=== PATIENT | female | born 1965 | race Caucasian/White ===

== ENCOUNTER 2018-10-14 06:50 | Observation (INO) ==
--- NOTE | 2018-10-05 13:48 | XRay Report ---
XR chest 2V routine CLINICAL HISTORY: PRE OP preoperative evaluation COMPARISON STUDY: 09/09/2015 FINDINGS: The bones soft tissues and hemidiaphragms are normal. The cardiomediastinal silhouette is n ormal. The lungs are clear. The pulmonary vasculature is normal. IMPRESSION: Negative chest. The above report was generated using voice recognition software. It may contain grammatical, syntax or spelling errors. Electronically signed by: Bhupendra Zuñiga M.D. 10/05/2018 1:47 PM
[2018-10-05 14:05] LABS: Basophils # (auto) 0.03 K/uL (0-0.2); Basophils % (auto) 0.3 %; Eosinophils # (auto) 0.12 K/uL (0-0.5); Eosinophils % (auto) 1.1 %; Hematocrit (blood only) 46.9 % (37-47); Hemoglobin 15.6 g/dL (12.0-16.0); Immature Granulocytes # (auto) 0.02 K/uL (0.00-0.02); Immature Granulocytes % (auto) 0.2 %; Lymphocytes # (auto) 2.99 K/uL (1.2-3.4); Lymphocytes % (auto) 26.7 %; Mean Corpuscular Hgb Conc 33.3 g/dL (32-36); Mean Corpuscular Volume 94.2 fL (80-100); Monocytes # (auto) 0.91 K/uL (0.11-0.59); Monocytes % (auto) 8.1 %; Neutrophils # (auto) 7.11 K/uL (1.4-6.5); Neutrophils % (auto) 63.6 %; Platelet Count 301 K/uL (130-400); RDW Coefficient of Variation 13.4 % (11.5-14.5); Red Blood Count 4.98 M/uL (4.2-5.4); White Blood Count 11.18 K/uL (4.8-10.8)
[2018-10-05 14:22] LABS: INR 0.9 (0.9-1.1); Partial Thromboplastin Time 26.3 Seconds (21.0-31.0); Prothrombin Time 9.7 Seconds (9.0-12.0)
[2018-10-05 14:32] LABS: Calcium 9.3 mg/dl (8.5-10.1); Creatinine Clr Calc Pharmacy 107.8 ml/min; Est GFR (African American) 117.4; Est GFR (Non-African American) 101.3; Potassium 3.7 mmol/L (3.5-5.1)
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
[~2018-10-14 06:50] MED LIST: ACETAMINOPHEN 1,000 MG/100 ML VIAL IV SCH; CEFAZOLIN 2000MG 2,000 MG/15 ML SYR IV SCH; LR 15ML/HR IV SCH; SODIUM CHLORIDE 0.9% 1,000 ML IV SCH
[2018-10-14] MEDS ORDERED: ONDANSETRON INJ 2 MG/ML 2 ML VIAL ONE (07:36)
[2018-10-14] MEDS ORDERED: NEOSTIGMINE METHYLSULFATE 5 MG/5 ML SYR ONE (07:36)
[2018-10-14] MEDS ORDERED: LIDOCAINE HCL 2% 2 ML VIAL/AMP(20MG/ML) INFIL ONE (07:36)
[2018-10-14] MEDS ORDERED: MIDAZOLAM HCL 1 MG/ML 2ML VIAL ONE (07:36)
[2018-10-14] MEDS ORDERED: GLYCOPYRROLATE 0.2 MG/ML VIAL ONE (07:36)
[2018-10-14] MEDS ORDERED: ROCURONIUM BROMIDE 10 MG/ML 5 ML VIAL ONE (07:36)
[2018-10-14] MEDS ORDERED: PHENYLEPHRINE 100MCG/ML 5ML SYR ONE (07:36)
[2018-10-14] MEDS ORDERED: fentaNYL citrate 100 MCG/2 ML VIAL ONE (07:36)
[2018-10-14] MEDS ORDERED: LARYING-O-JET KIT (LTA) ONE (07:36)
[2018-10-14] MEDS ORDERED: ePHEDrine sulfate 50 MG/ML SYR ONE (07:36)
[2018-10-14] MEDS ORDERED: PROPOFOL IV EMULSION 10 MG/ML 20 ML VIAL IV ONE (07:36)
[2018-10-14] MEDS ORDERED: DEXAMETHASONE SOD INJ 4 MG/ML VIAL ONE (07:36)
--- NOTE | 2018-10-14 07:41 | History & Physical Bridge Note ---
Date of Service October 14, 2018 History & Physical Bridge Note I have examined the patient, reviewed the History & Physical and in the interval since the performance of the History & Physical I have noted the following changes of clinical significance: no changes noted
[2018-10-14] MEDS ORDERED: ePHEDrine sulfate 50 MG/ML AMP IV PRN (07:49)
[2018-10-14] MEDS ORDERED: ONDANSETRON INJ 2 MG/ML 2 ML VIAL IV PRN ×2 (07:49→12:03)
[2018-10-14] MEDS ORDERED: ATROPINE SULFATE 0.1 MG/ML 10ML SYR IV PRN (07:49)
[2018-10-14] MEDS ORDERED: GELATIN SPONGE SZ 100 ONE (07:54)
[2018-10-14] MEDS ORDERED: VANCOMYCIN HCL 1000MG/20ML VIAL ONE (07:54)
[2018-10-14] MEDS ORDERED: BUPIVACAINE/EPINEPHRINE 0.5% MPF 1:200,000 30 ML VIAL ONE (07:54)
[2018-10-14] MEDS ORDERED: BACITRACIN INJ 50,000 UNIT VIAL ONE (07:55)
[2018-10-14] MEDS ORDERED: HYDROmorphone INJ 2 MG/ML SYR/VIAL ONE (08:49)
[2018-10-14] MEDS: THROMBIN FOR SOLN 20000 UNIT KIT ONE ×2 (08:58→12:28)
--- NOTE | 2018-10-14 10:21 | Fluoroscopy Report ---
FL spine 1V any level CLINICAL HISTORY: L5-S1 REMOVAL OF SILVIA/ L4-L5 LMAI AND FUSION COMPARISON STUDY: October 11 FLUOROSCOPY TIME: 68 seconds. NUMBER OF FLUOROSCOPIC IMAGES: 1 FINDINGS: A single fluoroscopic crosstable lateral view the lumbar spine is provided for interpretati on. There are posterior skin retractors. There are postsurgical changes at L5-S1 discectomy and inter body fusion. There are pedicle screws at the L4, L5, and S1 levels. IMPRESSION: Intraoperative fluoroscopic spot film as described above. Electronically signed by: David Moyer M.D. 10/14/2018 10:20 AM
[2018-10-14] MEDS: fentaNYL citrate 100 MCG/2 ML VIAL IV PRN ×3 (10:39→11:15)
--- NOTE | 2018-10-14 11:31 | Anesthesiology Progress Note ---
Date of Service October 14, 2018 Anesthesia Post Procedure Vital Signs Vital Signs: Temp Pulse Pulse Resp BP Pulse Ox 10/14/18 11:25 47 L 18 131/57 L 98 10/14/18 11:15 61 24 148/68 H 98 10/14/18 11:05 97.3 F L 66 14 138/62 98 10/14/18 10:55 59 L 16 149/63 H 100 10/14/18 10:45 67 20 148/80 H 100 10/14/18 10:35 72 18 138/90 100 10/14/18 10:29 97.5 F L 92 H 15 146/89 H 100 10/14/18 07:25 97.9 F 66 18 148/79 H 96 Pain Intensity Lower Back: Pain Intensity: 3 Bilateral Leg: Pain Intensity: 7 Transfer of Care Handoff Completed per policy Notes Mental Status: alert / awake / arousable and participated in evaluation Patient Amnestic to Procedure: Yes Nausea / Vomiting: adequately controlled Pain: adequately controlled Airway Patency, RR, SpO2: stable & adequate BP & HR: stable & adequate Hydration State: stable & adequate Anesthetic Complications: no major complications apparent and Pt Satisfied with anesthetic care
[2018-10-14] MEDS ORDERED: ACETAMINOPHEN 1,000 MG/100 ML VIAL IV PRN (12:03)
[2018-10-14] MEDS ORDERED: SOD PHOSPHATE/SOD BIPHOSPHATE ENEMA 132 ML BTL PR PRN (12:03)
[2018-10-14] MEDS ORDERED: BISACODYL 10 MG SUPP PR PRN (12:03)
[2018-10-14] MEDS ORDERED: MAGNESIUM HYDROXIDE SUSP 30 ML UDC PO PRN (12:03)
[2018-10-14] MEDS: SODIUM CHLORIDE 0.9% 1000ML 1,000 ML IV SCH (12:29)
[2018-10-14] MEDS: KETOROLAC 30 MG/ML VIAL IV SCH ×2 (12:31→17:02)
[2018-10-14] MEDS: HYDROmorphone INJ 0.5 MG/0.5 ML SYR IV PRN (13:11)
[2018-10-14] MEDS: OXYCODONE HCL IR 5 MG TAB (IMMEDIATE RELEASE) PO PRN ×2 (15:52→20:06)
[2018-10-14] MEDS: CEFAZOLIN 2000MG 2,000 MG/15 ML SYR IV SCH (16:05)
--- NOTE | 2018-10-14 18:58 | Operative Report ---
DATE OF OPERATION: 10/14/2018 PREOPERATIVE DIAGNOSES: Spinal stenosis lumbar spine, instability lumbar spine. PROCEDURE: Revision of L4 and L5 lumbar spine, 2-level decompression laminectomy, foraminotomy, partial facetectomy, extension of the fusion and fusion L4-L5 lumbar spine. There was no interbody device. DESCRIPTION OF PROCEDURE: The patient was taken marked in the preop holding area and a bridge note provided to the patient prior to her bringing back to surgery. She was intubated. Cardona catheter placed. Placed prone, prepped and draped sterile. We used her old skin incision really slightly longer going in a little more superior direction. We dissected the soft tissue. She is a fairly good size individual, the dissection was not incidental. We got down to the dural structures. We got down to the lamina, facet joints, and prior implants. We carefully took off the old implants at L5-S1, which really amounted to a wilton but most part we let some of the screws in place. We then decompressed the neural elements, got a good decompression of L5 and L4 lumbar spine foraminotomies and partial facetectomies of the area. We then instrumented the spine. I was able to safely get pedicle screws into the 4th vertebrae. We adjusted the right hand screw at 5. This accommodated the wilton locking down the instrumentation. We then bone grafted out of the transverse processes with autograft morselized and demineralized bone matrix. We irrigated and closed over vancomycin powder, Hemovac drain with 1 Vicryl, 2-0 and 3-0 nylon on the skin, sterile dressing applied. The patient returned to PACU improved and in stable condition. Sponge and needle count correct at the close. There were no apparent intraoperative complications. BLOOD LOSS: 100 mL SURGEON: Jorgito Singh DO. SHELL PLATER: Reddy Snell PA-C. I attest to the content of the Intraoperative Record and any orders documented therein. Any exception s are noted below.
[2018-10-14] MEDS: DOCUSATE SODIUM/SENNA 50/8.6MG TAB PO SCH (20:07)
[2018-10-15] MEDS: KETOROLAC 30 MG/ML VIAL IV SCH ×2 (00:05→04:53)
[2018-10-15] MEDS: CEFAZOLIN 2000MG 2,000 MG/15 ML SYR IV SCH (00:06)
[2018-10-15] MEDS: SODIUM CHLORIDE 0.9% 1000ML 1,000 ML IV SCH (00:07)
[2018-10-15] MEDS: OXYCODONE HCL IR 5 MG TAB (IMMEDIATE RELEASE) PO PRN ×3 (05:45→15:50)
[2018-10-15 06:19] LABS: Basophils # (auto) 0.02 K/uL (0-0.2); Basophils % (auto) 0.2 %; Eosinophils # (auto) 0.03 K/uL (0-0.5); Eosinophils % (auto) 0.2 %; Hemoglobin 11.8 g/dL (12.0-16.0); Immature Granulocytes # (auto) 0.04 K/uL (0.00-0.02); Immature Granulocytes % (auto) 0.3 %; Lymphocytes # (auto) 3.29 K/uL (1.2-3.4); Lymphocytes % (auto) 24.7 %; Mean Corpuscular Hgb Conc 31.9 g/dL (32-36); Mean Corpuscular Volume 95.4 fL (80-100); Mean Platelet Volume 9.9 fL (7.4-10.4); Monocytes # (auto) 1.57 K/uL (0.11-0.59); Monocytes % (auto) 11.8 %; Neutrophils # (auto) 8.36 K/uL (1.4-6.5); Neutrophils % (auto) 62.8 %; Platelet Count 207 K/uL (130-400); RDW Coefficient of Variation 13.6 % (11.5-14.5); RDW Standard Deviation 47.3 fL (36.4-46.3); Red Blood Count 3.88 M/uL (4.2-5.4); White Blood Count 13.31 K/uL (4.8-10.8)
[2018-10-15 06:47] LABS: BUN Creatinine Ratio 14.2 (10-20); Calcium 8.4 mg/dl (8.5-10.1); Creatinine Clr Calc Pharmacy 113.6 ml/min; Est GFR (African American) 119.1; Est GFR (Non-African American) 102.8; Potassium 3.9 mmol/L (3.5-5.1)
--- NOTE | 2018-10-15 08:06 | Anesthesiology Progress Note ---
Date of Service October 15, 2018 Anesthesia Post Procedure Vital Signs Vital Signs: Temp Pulse Pulse Resp BP Pulse Ox 10/15/18 07:48 36.6 C 71 18 134/83 99 10/15/18 02:27 36.7 C 73 16 136/73 99 10/14/18 22:55 36.6 C 61 16 122/74 97 10/14/18 18:51 36.6 C 73 17 148/86 H 95 10/14/18 16:03 36.7 C 66 17 129/79 95 10/14/18 15:12 36.5 C 68 17 125/75 94 10/14/18 14:00 36.4 C L 75 16 119/74 93 10/14/18 13:00 61 16 113/72 96 10/14/18 12:35 35.6 C L 61 20 144/83 H 95 10/14/18 12:00 36.3 C L 58 L 16 132/80 94 10/14/18 11:45 36.3 C L 66 17 142/72 H 96 10/14/18 11:35 57 L 15 119/84 97 10/14/18 11:25 47 L 18 131/57 L 98 10/14/18 11:15 61 24 148/68 H 98 10/14/18 11:05 36.3 C L 66 14 138/62 98 10/14/18 10:55 59 L 16 149/63 H 100 10/14/18 10:45 67 20 148/80 H 100 10/14/18 10:35 72 18 138/90 100 10/14/18 10:29 36.4 C L 92 H 15 146/89 H 100 Pain Intensity Lower Back: Pain Intensity: 6 Bilateral Leg: Pain Intensity: 4 Notes Mental Status: alert / awake / arousable and participated in evaluation Patient Amnestic to Procedure: Yes Nausea / Vomiting: adequately controlled Pain: adequately controlled Airway Patency, RR, SpO2: stable & adequate BP & HR: stable & adequate Hydration State: stable & adequate Anesthetic Complications: no major complications apparent and Pt Satisfied with anesthetic care
[2018-10-15] MEDS: DOCUSATE SODIUM 100 MG CAP PO SCH (08:16)
--- NOTE | 2018-10-15 14:16 | Post Operative Brief Note ---
PG Immediate Post Op with CF Date of Surgery October 14, 2018 Pre & Post Diagnosis Operation Date: 10/14/18 08:15 Pre-Op Diagnosis: Spinal Stenosis Post-Op Diagnosis: Spinal Stenosis Procedure Operation Date: 10/14/18 08:15 Actual Procedures p L5-S1 Removal Humberto, L4-L5 Laminectomy and Fusion(Not Applicable) - Jorgito Singh DO Surgeon Jorgito Singh DO [employer] Sales Representative nga cooley Estimated Blood Loss 100 Findings Consistent with Post-Op Diagnosis Drains Cardona Catheter and Hemovac Drain
[2018-10-15] MEDS: HYDROmorphone INJ 0.5 MG/0.5 ML SYR IV PRN ×2 (17:02→20:35)
[2018-10-15] MEDS: DOCUSATE SODIUM/SENNA 50/8.6MG TAB PO SCH (20:31)
[2018-10-16] MEDS: HYDROmorphone INJ 0.5 MG/0.5 ML SYR IV PRN (00:05)
[2018-10-16] MEDS: OXYCODONE HCL IR 5 MG TAB (IMMEDIATE RELEASE) PO PRN ×2 (04:21→08:21)
[2018-10-16] MEDS: DOCUSATE SODIUM 100 MG CAP PO SCH (08:21)
--- NOTE | 2018-10-16 23:24 | Discharge Summary ---
SUBJECTIVE: She is alert, oriented. She is now out about 20 hours from major spinal surgery. OBJECTIVE: She is alert, oriented, taking p.o. Pain controlled. Afebrile. Wound protected, not examined. ASSESSMENT: Status post reconstructive surgery for degenerative issues and spinal stenosis. PLAN: We will discharge her home this morning. She has a back brace. She has prescriptions. She has instructions, precautions given here at the hospital and in the office, basically home, rest and recover for the next 14 days. Keep the wound clean and dry.
== END 2018-10-16 10:58 | disposition home or self-care (01) ==
LOC: 3E 06:50 → ASU 06:50